=== PATIENT | female | born 2005 | race Caucasian/White ===

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

== ENCOUNTER 2024-02-28 23:50 | Emergency (ER) | payer BC ==
[2024-02-29 00:30] VITALS: BP 124/83; PULSE 84
== END 2024-02-29 00:57 | disposition home or self-care (01) ==
LOC: LL.ED 23:50
DX: S93.491A Sprain of other ligament of right ankle, initial encounter (principal); E66.9 Obesity, unspecified; Z91.030 Bee allergy status; Z88.8 Allergy status to other drugs, medicaments and biological substances; W17.2XXA Fall into hole, initial encounter
CPT/HCPCS: 73610-RT; 99283

== ENCOUNTER 2024-08-20 10:27 | Day surgery (SDC) | payer BC ==
[~2024-08-20 10:27] MED LIST: Propofol 200 MG/20 ML SDV ONE; Sodium Chloride 0.9% 10 ML Syringe FLUSH PRN
[2024-08-20] MEDS: Lactated Ringers 1,000 ML IV SCH (10:41)
[2024-08-20] MEDS ORDERED: Propofol 200 MG/20 ML SDV ONE (11:30)
[2024-08-20 14:05] VITALS: BP 121/72; PULSE 62
== END 2024-08-20 12:46 | disposition home or self-care (01) ==
LOC: LL.SDS 10:27
PROVIDERS: ATTEND Surgery
DX: K29.50 Unspecified chronic gastritis without bleeding (principal); K21.9 Gastro-esophageal reflux disease without esophagitis; F32.A Depression, unspecified; F41.1 Generalized anxiety disorder; D64.9 Anemia, unspecified; E66.01 Morbid (severe) obesity due to excess calories; E66.813 Obesity, class 3; Z68.45 Body mass index [BMI] 70 or greater, adult; Z79.899 Other long term (current) drug therapy; Z88.8 Allergy status to other drugs, medicaments and biological substances; Z91.030 Bee allergy status
CPT/HCPCS: 81025; 82947; J2704; J7120

== ENCOUNTER 2025-06-04 20:38 | Emergency (ER) | payer BC ==
[2025-06-04 20:47] VITALS: BP 134/81; PULSE 107
[2025-06-04] MEDS: Take Home: Sulfamethoxazole/Trimethoprim 800-160 MG Tab, 6 Tab Pack PO ONE (21:01)
[2025-06-04] MEDS: Take Home: predniSONE 20 MG, 4 Tab Pack PO ONE (21:01)
== END 2025-06-04 21:11 | disposition home or self-care (01) ==
LOC: LL.ED 20:38
DX: S80.861A Insect bite (nonvenomous), right lower leg, initial encounter (principal); L03.115 Cellulitis of right lower limb; Z88.8 Allergy status to other drugs, medicaments and biological substances; Z91.030 Bee allergy status; Z79.899 Other long term (current) drug therapy; Z79.51 Long term (current) use of inhaled steroids; Z79.84 Long term (current) use of oral hypoglycemic drugs; W57.XXXA Bitten or stung by nonvenomous insect and other nonvenomous arthropods, initial encounter; Y93.89 Activity, other specified
CPT/HCPCS: 99282; 99283; A9270-GY; J7512